=== PATIENT | female | born 1970 | race Caucasian/White ===

== ENCOUNTER 2017-10-19 21:23 | Emergency (ER) | payer MEDICAID ==
--- NOTE | 2017-10-19 21:42 | EDPHY ---
H & P Time Seen by Provider: 10/19/17 21:26 HPI/ROS: CHIEF COMPLAINT: Itching and burning of skin HISTORY OF PRESENT ILLNESS: 47-year-old female presents to the emergency department by ambulance complaining of itching and burning to the dorsal aspect of both hands as well as her cheeks. The patient is prescribed doxycycline for pneumonia. She states that she has been trying to stay out of the sun but she is homeless. She describes a burning sensation to both hands in her face. She denies chest pain or difficulty breathing. Denies abdominal pain. The patient was concerned that she was having allergic reaction therefore did not take her prescribed doxycycline this evening. She denies difficulty swallowing. Denies any other rashes. REVIEW OF SYSTEMS: Constitutional: No fever, no chills. Eyes: No double or blurry vision. ENT: No sore throat. Respiratory: No cough, no shortness of breath. Cardiac: No chest pain. Gastrointestinal: No abdominal pain, vomiting or diarrhea. Genitourinary: No dysuria. Musculoskeletal: No neck or back pain. Skin: Burning rash as above. Neurological: No headache. Past Medical/Surgical History: Bipolar, recently diagnosed with pneumonia Social History: Homeless, stays at [facility] Physical Exam: General Appearance: Alert, no distress. No apparent distress. Specifically no respiratory distress. Eyes: Pupils equal and round. Extraocular motions are all intact. ENT: Mouth: Mucous membranes moist. No posterior pharyngeal injection or swelling. Speaking full sentences. Respiratory: No wheezing, rhonchi, or rales, lungs are clear to auscultation. Cardiovascular: Regular rate and rhythm. Gastrointestinal: Abdomen is soft and nontender, no masses, no rebound or guarding, bowel sounds normal. Neurological: Alert and oriented x 3, cranial nerves II through XII grossly intact Skin: She has redness noted diffusely to her face. No evidence of urticaria or vesicles. The dorsal aspect of both hands are slightly erythematous. No vesicles. No other obvious rash. Musculoskeletal: Nontender to palpate along the cervical, thoracic or lumbar spine. Neck is supple. Extremities: Full range of motion and no peripheral edema. Psychiatric: Patient is oriented X 3, there is no agitation. Medical Decision Making ED Course/Re-evaluation: 47-year-old homeless female presents to the emergency department by ambulance concerned that she is having allergic reaction to her doxycycline. I did explain to the patient that doxycycline can make her extremely photophobic. She states that she has been trying to stay out of the sun the clearly appears sunburn. I explained to the patient that the sensations that she has experiencing in her hands and face are likely an adverse reaction to photosensitivity from doxycycline and sun exposure. I do not think she is having allergic reaction. I did encourage her to continue taking her doxycycline and to stay out of the sun. I did apply some bacitracin ointment to the dorsal aspect of her hands and her face which she states helped. Patient will be discharged back to [facility]. I do not think additional medications are indicated. I did encourage her to continue taking her doxycycline to treat her pneumonia. She was 97% on room air. Differential Diagnosis: Including but not limited to photosensitivity due to adverse reaction from doxycycline and sun exposure, anaphylaxis, urticaria, allergic reaction Departure - Departure Disposition: Home, Routine, Self-Care Clinical Impression: Photosensitivity due to sun Condition: Good Instructions: Photosensitivity (ED) Additional Instructions: You should continue her doxycycline as prescribed and stay out of the sun. Continue smoking cessation. Return to the emergency department if you developed difficulty breathing, rash, difficulty swallowing, or if you feel worse in any way. Referrals: [facility],. [Clinic] - As per Instructions
[2017-10-19 22:27] VITALS: BP 106/72; PULSE 68; RESP 16; TEMP 98.1; O2SAT 96
== END 2017-10-19 22:30 | disposition home or self-care (01) ==
DX: L56.8 Other specified acute skin changes due to ultraviolet radiation (principal); W89.9XXA Exposure to unspecified man-made visible and ultraviolet light, initial encounter

== ENCOUNTER → 2017-11-04 | Outpatient (CLI) | payer MEDICAID | LOC: FIMAGING 15:19 | PROVIDERS: ATTEND Physician Assistant | DX: J40 Bronchitis, not specified as acute or chronic (principal); R91.1 Solitary pulmonary nodule ==

== ENCOUNTER 2018-05-16 10:44 | Emergency (ER) | payer MEDICAID ==
--- NOTE | 2018-05-16 11:36 | EDPHY ---
H & P Smoking Status: Current every day smoker Time Seen by Provider: 05/16/18 11:06 HPI/ROS: CHIEF COMPLAINT: Back pain, right leg pain HISTORY OF PRESENT ILLNESS: 48-year-old homeless female presents emergency department with ongoing back pain and right leg pain. She denies any known trauma or injury although her primary care provider encouraged her to start exercising. She thinks that maybe she over did it when she was working out. She has pain in her right low back radiating down her right leg. She has had this in the past. She saw her primary care provider on 05/13/2018 and they prescribed gabapentin and cyclobenzaprine. She has been taking this without relief. She had an MRI of her lumbar spine this week at an outpatient imaging facility. She denies footdrop. Denies bowel or bladder incontinence. She states that she has not been able to sleep because of the pain. REVIEW OF SYSTEMS: Constitutional: No fever, no chills. Eyes: No double or blurry vision. ENT: No sore throat. Respiratory: No cough, no shortness of breath. Cardiac: No chest pain. Gastrointestinal: No abdominal pain, vomiting or diarrhea. Genitourinary: No dysuria. Musculoskeletal: Back pain as above. No neck pain. Skin: No rashes. Neurological: No headache. (Adeline Espino) Past Medical/Surgical History: PTSD, Anxiety, chronic back pain, back surgery (Adeline Espino) Social History: Homeless, staying [facility] (Adeline Espino) Physical Exam: General Appearance: Alert, no distress. Eyes: Pupils equal and round. Extraocular motions are all intact. ENT: Mouth: Mucous membranes moist. Respiratory: No wheezing, rhonchi, or rales, lungs are clear to auscultation. Cardiovascular: Regular rate and rhythm. Gastrointestinal: Abdomen is soft and nontender, no masses, no rebound or guarding, bowel sounds normal. Neurological: Alert and oriented x 3, cranial nerves II through XII grossly intact Skin: Warm and dry, no rashes. Musculoskeletal: Nontender to palpate along the cervical, thoracic or lumbar spine. Neck is supple. The patient is unable to lift her right leg secondary to pain although I am able to passively do this. She is however able to fully flex her right knee toward her chest without difficulty although this does cause pain. Extremities: Full range of motion and no peripheral edema. Psychiatric: Patient is oriented X 3, there is no agitation. (Adeline Espino) Constitutional: Initial Vital Signs Temperature (C) 36.5 C 05/16/18 10:45 Heart Rate 71 05/16/18 10:45 Respiratory Rate 18 05/16/18 10:45 Blood Pressure 99/72 L 05/16/18 10:45 O2 Sat (%) 99 05/16/18 10:45 O2 Delivery Mode Room Air Allergies/Adverse Reactions: cephalexin [From Keflex] Allergy (Verified 05/16/18 10:49) Home Medications: Medication Instructions Recorded methylPREDNISolone [Medrol Dose 1 each PO AD #1 ea 05/16/18 Slim] Medical Decision Making ED Course/Re-evaluation: The patient's lumbar spine MRI from [email or web address] dated 05/07/2018 reveals 1. Protruding disc and facet hypertrophy at L4-L5 with mild spinal stenosis and severe bilateral foraminal stenosis. 2. No significant spinal stenosis at any other level. 3. Moderate bilateral foraminal stenosis at L3-L4 and mild bilateral foraminal stenosis at L2-L3 and L5-S1 due to disc and facet hypertrophy. The results were reviewed with the patient. She was given prescription for Medrol Dosepak as well as referral to Neurosurgery. I do not think admission is necessary at this point. She is comfortable being discharged. She may continue the gabapentin and Flexeril as prescribed by her primary care provider as needed. She was instructed to return to the emergency department if she developed bowel or bladder incontinence, increasing pain, or if she feels worse in any way. Patient verbalized understanding and agreed. (Adeline Espino) The patient was evaluated and managed by the physician mailroom assistant. I have reviewed this chart and I agree with the findings and plan of care as documented , as indicated by my signature. I am the secondary supervising physician. ( Kathy De Jesus) Differential Diagnosis: Back pain including but not limited to muscular pain, herniated disc, spine fracture, intra-abdominal causes and urinary tract infection. (Adeline Espino) Departure - Departure Disposition: Home, Routine, Self-Care Clinical Impression: Low back strain Condition: Fair Instructions: Low Back Strain (ED), Lumbar Radiculopathy (ED) Additional Instructions: Medrol dose pack as directed for one week. You may continue gabapentin for pain and cyclobenzaprine as needed for muscular spasm. Return to the emergency department if you developed foot drop, bowel or bladder incontinence, increasing pain, or if you feel worse in any way. You should schedule a follow-up appointment with the neurosurgeon on-call. The name has been given to you. Tell them that you were seen in the emergency department, you have already had an outpatient MRI ordered by her primary care provider, and you should be seen for an ER follow-up appointment. Referrals: Dinesh Ling MD [Medical Doctor] - 5-7 days, call for appt. (Neurosurgeon on- call) Prescriptions: methylPREDNISolone [Medrol Dose Slim] 1 each PO AD #1 ea
[2018-05-16 12:14] VITALS: BP 98/73
== END 2018-05-16 12:13 | disposition home or self-care (01) ==
DX: S39.012A Strain of muscle, fascia and tendon of lower back, initial encounter (principal); M79.604 Pain in right leg

== ENCOUNTER 2018-08-01 19:33 | Emergency (ER) | payer MEDICAID ==
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
[2018-08-01] MEDS ORDERED: IBUPROFEN 600 MG TAB PO ONE (20:38)
[2018-08-01 20:49] VITALS: BP 92/58
== END 2018-08-01 20:48 | disposition home or self-care (01) ==
LOC: EDUNIT#
DX: S16.1XXA Strain of muscle, fascia and tendon at neck level, initial encounter (principal); M79.2 Neuralgia and neuritis, unspecified; F43.10 Post-traumatic stress disorder, unspecified; F17.200 Nicotine dependence, unspecified, uncomplicated; W05.0XXA Fall from non-moving wheelchair, initial encounter; Y92.811 Bus as the place of occurrence of the external cause; Y93.9 Activity, unspecified; Y99.9 Unspecified external cause status